=== PATIENT | male | born 1950 | race Caucasian/White ===

== ENCOUNTER → 2020-11-10 | Outpatient (CLI) | payer MEDICARE, OTHER ==
[~2020-11-10] MED LIST: ALBUTEROL1.25 MG/3 INH; ALPRAZOLAM0.5 MG PO; ASPIRIN EC81 MG PO; ATORVASTATIN CA20 MG PO; BACTRIM 400-801 EACH PO; CEFIXIME400 MG PO; CEFUROXIME250 MG PO; CLARITIN10 M2 PO; CYANOCOBAL1000 MCG/1 INJ; DEXAMETHASONE 44 MG PO; DIGOXIN125 MCG PO; ELIQUIS5 MG PO; FLUZONE QU60 MCG/015 IM; HYDRALAZINE HCL25 MG PO; HYDROCODON-ACE1 EAC6 PO; IPRAT-ALBUT 0.5-3 ML INH; LASIX20 MG PO; LEVOCETIRIZINE D5 MG PO; LOPRESSOR 25 MG25 MG PO; MEGESTROL400 MG/11 PO; MYLICON CHEWABL80 MG PO; NORVASC10 MG PO; PANTOPRAZOLE SO40 MG PO; PHENERGAN 25 MG25 M1 PO; POTASSIUM CHLO20 ME2 PO; PROTONIX 40 MG40 M1 PO; PROVENTIL HFA6.7 GM INH; VENTOLIN HFA 66.7 GM INH; VITAMIN D21250 MCG PO; XANAX0.5 MG PO; ZESTRIL2.5 MG PO
== END ==
LOC: MRI 09:16
DX: Z01.812 Encounter for preprocedural laboratory examination (principal); C43.62 Malignant melanoma of left upper limb, including shoulder; R55 Syncope and collapse
CPT/HCPCS: 36415; 82565

== ENCOUNTER → 2020-11-11 | Outpatient (CLI) | payer MEDICARE, OTHER | LOC: SLEEP 14:52 | DX: C43.62 Malignant melanoma of left upper limb, including shoulder (principal); R26.81 Unsteadiness on feet; I50.9 Heart failure, unspecified; Z79.899 Other long term (current) drug therapy; G47.33 Obstructive sleep apnea (adult) (pediatric) | CPT/HCPCS: 95811 ==

== ENCOUNTER 2020-12-07 16:12 | Inpatient (IN) | payer MEDICARE, OTHER ==
[~2020-12-07] VITALS: Ht 177.8 cm; Wt 79.4 kg
[~2020-12-07 16:12] MED LIST changes: -ALBUTEROL1.25 MG/3 INH; -ALPRAZOLAM0.5 MG PO; -ASPIRIN EC81 MG PO; -ATORVASTATIN CA20 MG PO; -CLARITIN10 M2 PO; -CYANOCOBAL1000 MCG/1 INJ; -IPRAT-ALBUT 0.5-3 ML INH; -LASIX20 MG PO; -MEGESTROL400 MG/11 PO; -VENTOLIN HFA 66.7 GM INH; -VITAMIN D21250 MCG PO; -ZESTRIL2.5 MG PO
[2020-12-07 17:09] LABS: RED BLOOD COUNT 3.89 M/UL (4.20-5.50); WHITE BLOOD COUNT 10.3 K/UL (4.5-11.0)
[2020-12-07] MEDS ORDERED: ALPRAZOLAM0.5 MG PO (20:51)
[2020-12-07] MEDS ORDERED: LASIX20 MG PO (20:51)
[2020-12-07] MEDS ORDERED: CLARITIN10 M2 PO (20:52)
[2020-12-07] MEDS ORDERED: ZESTRIL2.5 MG PO (20:53)
[2020-12-07] MEDS ORDERED: CYANOCOBAL1000 MCG/1 INJ (20:55)
[2020-12-07] MEDS ORDERED: VITAMIN D21250 MCG PO (20:55)
[2020-12-07] MEDS ORDERED: MEGESTROL400 MG/11 PO (20:57)
[2020-12-07] MEDS ORDERED: VENTOLIN HFA 66.7 GM INH (20:57)
[2020-12-07] MEDS ORDERED: IPRAT-ALBUT 0.5-3 ML INH (21:01)
[2020-12-07] MEDS ORDERED: ALBUTEROL1.25 MG/3 INH (21:01)
[2020-12-08 05:44] LABS: HEMOGLOBIN 12.6 gm/dl (14.0-17.5); RED BLOOD COUNT 3.76 M/UL (4.20-5.50); WHITE BLOOD COUNT 8.9 K/UL (4.5-11.0)
[2020-12-08] MEDS ORDERED: ATORVASTATIN CA20 MG PO (12:22)
[2020-12-08] MEDS ORDERED: ASPIRIN EC81 MG PO (12:22)
== END 2020-12-08 15:38 | disposition home or self-care (01) | DRG 66 ==
LOC: ER1 16:12 → CDU 18:00
PROVIDERS: Physician Assistant; ADMIT Internal Medicine
PROC: B24BZZZ Ultrasonography of Heart with Aorta (ICD-10-PCS; principal; 2020-12-08)
DX: I63.412 Cerebral infarction due to embolism of left middle cerebral artery (principal); I48.91 Unspecified atrial fibrillation; R47.81 Slurred speech; R29.810 Facial weakness; E78.5 Hyperlipidemia, unspecified; Z20.822 Contact with and (suspected) exposure to COVID-19; I12.9 Hypertensive chronic kidney disease with stage 1 through stage 4 chronic kidney disease, or unspecified chronic kidney disease; N18.30 Chronic kidney disease, stage 3 unspecified; J44.9 Chronic obstructive pulmonary disease, unspecified; F17.210 Nicotine dependence, cigarettes, uncomplicated; Z85.820 Personal history of malignant melanoma of skin; Z80.42 Family history of malignant neoplasm of prostate; Z79.01 Long term (current) use of anticoagulants; Z79.899 Other long term (current) drug therapy
CPT/HCPCS: ECHO; 36415; 70450; 70551; 71045; 80053; 80061; 82550; 82553; 82962; 83036; 83874; 84443; 84484; 85025; 85610; 90471; 93306; 93880; 96372; 96374; 97162; 99285; J1642; U0002

== ENCOUNTER → 2021-06-14 | Outpatient (CLI) | payer MEDICARE, OTHER ==
[~2021-06-14] MED LIST changes: +ALBUTEROL1.25 MG/3 INH; +ALPRAZOLAM0.5 MG PO; +ASPIRIN EC81 MG PO; +ATORVASTATIN CA20 MG PO; +CLARITIN10 M2 PO; +CYANOCOBAL1000 MCG/1 INJ; +IPRAT-ALBUT 0.5-3 ML INH; +LASIX20 MG PO; +MEGESTROL400 MG/11 PO; +VENTOLIN HFA 66.7 GM INH; +VITAMIN D21250 MCG PO; +ZESTRIL2.5 MG PO
== END ==
LOC: OPSV 10:59 → MRI 10:59
DX: Z12.89 Encounter for screening for malignant neoplasm of other sites (principal); C43.62 Malignant melanoma of left upper limb, including shoulder; E86.0 Dehydration; R26.81 Unsteadiness on feet; R42 Dizziness and giddiness
CPT/HCPCS: 70553; 96360; 96361; A9577

== ENCOUNTER → 2021-10-06 | Outpatient (CLI) | payer MEDICARE, OTHER | LOC: KOH-I 12:36 | DX: F17.210 Nicotine dependence, cigarettes, uncomplicated (principal); R91.8 Other nonspecific abnormal finding of lung field | CPT/HCPCS: 71271 ==

== ENCOUNTER → 2022-03-04 | Outpatient (CLI) | payer MEDICARE, OTHER | LOC: LAB 09:17 | PROVIDERS: Internal Medicine | DX: C43.62 Malignant melanoma of left upper limb, including shoulder (principal); Z79.899 Other long term (current) drug therapy; I50.9 Heart failure, unspecified; R26.81 Unsteadiness on feet | CPT/HCPCS: 80053 ==